=== PATIENT | male | born 1955 | race Caucasian/White ===

== ENCOUNTER 2019-04-08 15:42 | Outpatient (CLI) | payer OTHER, SELFPAY ==
[2019-04-08 16:33] LABS: Abs Immature Grans 0.01 k/cumm (0.0-0.09); Absolute Basophil Count 0.01 k/cumm (0.0-0.2); Absolute Eosinophil Count 0.06 k/cumm (0.0-0.7); Absolute Lymphocyte Count 0.82 k/cumm (1.2-3.4); Absolute Monocyte Count 0.28 k/cumm (0.11-0.7); Absolute Neutrophil Count 1.46 k/cumm (1.2-6.7); Basophils % 0.4; Eosinophils % 2.3; HCT 28.4 % (40.0-50.0); HGB 9.9 g/dL (13.5-17.5); Immature Grans % 0.4; Lymphocytes % 31.1; Mean Corp. HGB Concentration 34.9 g/dL (32.0-36.0); Mean Corpuscular Hemoglobin 31.4 pg (27.0-33.0); Mean Corpuscular Volume 90.2 fL (80-95); Mean Platelet Volume 10.9 fL (8.0-11.0); Monocytes % 10.6; Neutrophils % 55.2; RBC 3.15 m/cumm (4.50-6.00); White Blood Cell Count 2.64 k/cumm (4.4-10.8)
[2019-04-08 16:59] LABS: Diff Comment Agrees w/ Instrument; Platelet Count 106 x1000/uL (130-400); Polychromasia Present
[2019-04-08 17:09] LABS: ALT 35 U/L (12-78); AST 22 U/L (15-37); Albumin 2.4 g/dL (3.4-5.0); Alkaline Phosphatase 148 U/L (46-116); Anion Gap 13.3 mmol/L (3-11); BUN 26 mg/dL (7-18); Bilirubin, Total 0.9 mg/dL (0.2-1.0); CO2 21.7 mmol/L (21.0-32.0); CREATININE 1.99 mg/dL (0.70-1.30); Calcium 8.4 mg/dL (8.5-10.1); Chloride 106 mmol/L (98-107); Estimated GFR 34.11 (mL/min/1.73m2); Glucose 151 mg/dL (70-100); Magnesium 1.6 mg/dL (1.8-2.4); PHOSPHORUS 3.5 mg/dL (2.6-4.7); Potassium 3.7 mmol/L (3.5-5.1); Sodium 141 mmol/L (136-145); Total Protein 6.9 g/dL (6.4-8.2); Uric Acid 7.7 mg/dL (3.5-7.2)
[2019-04-08 17:24] LABS: Calculated LDL 105 mg/dL; Cholesterol 178 mg/dL (50-200); HDL Cholesterol 50 mg/dL (40-60); Triglyceride 119 mg/dL (30-150)
[2019-04-11 13:16] LABS: Tacrolimus 2.7 ng/ml
[2019-04-12 21:10] LABS: Everolimus, Blood 2.7 ng/mL (3-8 ng/mL)
== END 2019-04-08 16:02 ==
PROVIDERS: Visit Provider Internal Medicine Gastroenterology
DX: Z94.4 Liver transplant status (principal); Z51.81 Encounter for therapeutic drug level monitoring
CPT/HCPCS: 36415; 80053; 80061; 83721; 80197; 80299; 83735; 84100; 84550; 85025